=== PATIENT | female | born 1995 | race Caucasian/White ===

== ENCOUNTER 2017-12-30 09:24 | Outpatient (CLI) | payer MEDICAID ==
--- NOTE | 2017-12-30 10:04 | XRAY Report ---
Procedure Date: 12/30/2017 Accession Number: [id number] / [id number] Procedure: XRN - Cervical Spine 2 View CPT Code: FULL RESULT: EXAM: CERVICAL SPINE RADIOGRAPHY EXAM DATE: 12/30/2017 09:31 AM. CLINICAL HISTORY: HEADACHES. COMPARISONS: None. TECHNIQUE: 3 views. FINDINGS: Alignment: Normal. No spondylolisthesis or scoliosis. Bones: The cervical vertebral bodies and posterior elements are well visualized from the skull base through C7-T1. No fractures or bone lesions. Disks: Chronic-appearing mild anterior superior endplate irregularity at C6 may be developmental, degenerative and/or relate to remote trauma. Otherwise no significant degenerative findings. Disk heights are maintained. Facets: No significant degenerative disease. Soft Tissues: Normal. No prevertebral soft tissue swelling. The visualized lung apices are clear. IMPRESSION: 1. No convincing acute osseous abnormality. 2. Other findings as noted above. RADIA
== END 2017-12-30 09:25 | disposition home or self-care (01) ==
LOC: DI.N 09:24
PROVIDERS: ATTEND Nurse Practitioner
DX: M54.2 Cervicalgia (principal); G44.89 Other headache syndrome
CPT/HCPCS: 72040

== ENCOUNTER 2018-03-29 17:09 | Outpatient (CLI) | payer MEDICAID | END 2018-03-29 17:10 | LOC: LAB.R 17:09 | PROVIDERS: ATTEND Nurse Practitioner | DX: R10.2 Pelvic and perineal pain (principal); N94.12 Deep dyspareunia | CPT/HCPCS: 87491; 87591 ==

== ENCOUNTER 2018-04-20 07:42 | Outpatient (CLI) | payer MEDICAID ==
--- NOTE | 2018-04-20 11:26 | Ultrasound Report ---
Reason: PELVIC PAIN, DEEP DYSPAREUNIA, ABD PAIN, ACUTE Procedure Date: 04/20/2018 Accession Number: [id number] / [id number] Procedure: US - Pelvic w/Transvaginal CPT Code: FULL RESULT: EXAM: PELVIC ULTRASOUND EXAM DATE: 04/20/2018 09:10 AM. CLINICAL HISTORY: Pelvic pain, deep dyspareunia, abdominal pain, acute. COMPARISON: None. TECHNIQUE: Realtime transabdominal pelvic scan performed to identify the uterus and adnexa and as an overview of other pelvic structures, followed by transvaginal scan to provide greater detail of the uterus and adnexa, with static image documentation. FINDINGS: Uterus: 8.5 x 5.1 x 5.0 cm, volume 113 cc. Retroverted retroflexed position. Normal overall size and echotexture. Masses: None. Endometrium: 11.5 mm. Normal. Cervix: Unremarkable. Right Ovary: 4.6 x 2.0 x 3.5 cm, volume 17 cc. Normal echotexture and blood flow. A 2.7 cm simple-appearing cyst likely represents a physiologic dominant follicle. Left Ovary: 3.1 x 1.7 x 2.0 cm, volume 5.5 cc. Normal echotexture and blood flow. Free Fluid: A small amount of free fluid is seen in the cul-de-sac, possibly physiologic. Other: None. IMPRESSION: Small amount of free pelvic fluid, otherwise normal examination. RADIA
--- NOTE | 2018-04-20 12:11 | Ultrasound Report ---
Reason: PELVIC PAIN, DEEP DYSPAREUNIA, ABD PAIN, ACUTE Procedure Date: 04/20/2018 Accession Number: [id number] / [id number] Procedure: US - Abdomen Complete CPT Code: FULL RESULT: EXAM: ABDOMEN ULTRASOUND EXAM DATE: 04/20/2018 08:50 AM. CLINICAL HISTORY: Pelvic pain, deep dyspareunia, abdomen pain, acute. COMPARISON: None. TECHNIQUE: Real-time scanning was performed with static images obtained. FINDINGS: Liver: Normal in size and echotexture. Right lobe of the liver measures at least 15.7 cm. Main portal vein flow: Hepatopetal. Gallbladder: Normal. No stones, wall thickening, or sonographic Shah's sign. Biliary System: Common bile duct measures 4 mm. No intrahepatic or extrahepatic ductal dilatation. Pancreas: Visualized portion is unremarkable. Kidneys: Right: 10.2 cm longitudinally. Normal. No contour-deforming mass, stones, or hydronephrosis. Left: 10.1 cm longitudinally. Normal. No contour-deforming mass, stones, or hydronephrosis. Spleen: 9 cm. Normal in size and echotexture. Aorta and Inferior Vena Cava: Unremarkable. Other: None. IMPRESSION: Normal abdomen ultrasound. RADIA
== END 2018-04-20 07:43 | disposition home or self-care (01) ==
LOC: DI 07:42
PROVIDERS: ATTEND Nurse Practitioner
DX: N94.12 Deep dyspareunia (principal); R10.2 Pelvic and perineal pain
CPT/HCPCS: 76700; 76830; 76856

== ENCOUNTER 2018-05-12 22:02 | Emergency (ER) | payer MEDICAID ==
--- NOTE | 2018-05-12 22:36 | ED Physician Documentation ---
PD HPI HEADACHE - Stated complaint Stated Complaint: ALONSO - Chief complaint Chief Complaint: Neuro - History obtained from History obtained from: Patient - History of Present Illness Timing - onset: How many weeks ago (2) Timing - onset during: Light activity Timing - duration: Weeks (2) Timing - details: Gradual onset, Still present, Waxing and waning Worst headache ever?: No: Worst headache ever? Location: Front, Right Quality: Throbbing, Aching Associated symptoms: No: Fever, Stiff neck, Nausea, Weakness Contributing factors: No: Anticoagulated, Hypertension, Recent illness, Trauma Similar symptoms before: No diagnosis Recently seen: Clinic (for the nosebleed, that was stopped at that time. No particular treatment offered.) PD PAST MEDICAL HISTORY - Past Medical History Cardiovascular: None Respiratory: None - Present Medications Home Medications: Ambulatory Orders Medication Instructions Recorded Confirmed Gabapentin 0 mg PO 05/12/18 Topiramate 0 mg PO 05/12/18 Dexamethasone [Decadron] 4 mg PO DAILY #5 tablet 05/13/18 Hydrocodone/Acetaminophen [[place] 1 each PO Q6H PRN #15 tablet 05/13/18 5-325 Tablet] Naproxen 375 mg PO BID #20 tablet 05/13/18 Ondansetron Odt [Zofran] 4 mg TL Q6H PRN #15 tablet 05/13/18 - Allergies Allergies/Adverse Reactions: Allergies Allergy/AdvReac Type Severity Reaction Status Date / Time No Known Drug Allergies Allergy Verified 05/12/18 22:09 PD ED PE NORMAL - Vitals Vital signs reviewed: Yes - General General: Alert and oriented X 3, Well developed/nourished - HEENT HEENT: PERRL (some light sensitivity), EOMI, Moist mucous membranes, Pharynx b enign - Neck Neck: Supple, no meningeal sign, No adenopathy, No JVD - Cardiac Cardiac: RRR, No murmur - Respiratory Respiratory: Clear bilaterally - Abdomen Abdomen: Soft, Non tender - Derm Derm: Normal color, Warm and dry - Extremities Extremities: No tenderness to palpate, Normal ROM s pain, No edema, No calf tenderness / cord - Neuro Neuro: Alert and oriented X 3, 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 No red flags to suggest desire for testing. ), considered differential (This seems likely to be a migraine type headache. She has not had them notably in the past. Basic tests are good here.), d/w patient Departure - Departure Disposition: 01 Home, Self Care Clinical Impression: Headache Qualifiers: Headache type: unspecified Headache chronicity pattern: acute headache Intractability: not intractable Qualified Code(s): R51 - Headache Condition: Stable Record reviewed to determine appropriate education?: Yes Instructions: ED Cephalgia Unspecified Follow-Up: Juany Bryson DNP [Primary Care Provider] - Prescriptions: Dexamethasone [Decadron] 4 mg PO DAILY #5 tablet Hydrocodone/Acetaminophen [[place] 5-325 Tablet] 1 each PO Q6H PRN #15 tablet PRN Reason: Pain Naproxen 375 mg PO BID #20 tablet Ondansetron Odt [Zofran] 4 mg TL Q6H PRN #15 tablet PRN Reason: Nausea / Vomiting Comments: Drink lots of fluids. Ondansetron if needed for nausea. Use naproxen anti- inflammatory twice daily for the next week. Also use Decadron steroid daily for the next 5 days. These will be to try to prevent the recurrence of the headache. Had hydrocodone if needed for headache. Follow-up with your primary care regarding the MRI results and follow-up on these headaches. We try to find the results of your MRI but the diagnostic center does not have any one available after hours to give out the reports and I do not have access to their database. Discharge Date/Time: 05/13/18 02:29
[2018-05-12] MEDS ORDERED: SODIUM CHLORIDE 0.9% 1,000 ML IV ONE (23:09)
[2018-05-12] MEDS ORDERED: METOCLOPRAMIDE 10 MG/2 ML VIAL IVP STA (23:15)
[2018-05-12] MEDS ORDERED: KETOROLAC 30 MG/ML VIAL IVP STA (23:15)
[2018-05-12] MEDS ORDERED: DEXAMETHASONE 10 MG/ML VIAL IVP STA (23:15)
[2018-05-13] MEDS ORDERED: HYDROcod/ACET 5/325 Prepack 4 PO STA (01:09)
[2018-05-13 02:23] VITALS: BP 117/77
== END 2018-05-13 02:29 | disposition home or self-care (01) ==
LOC: ED 22:02
DX: R51 Headache (principal)
CPT/HCPCS: 96361; 96374; 96375; 99283; 99284; J2765

== ENCOUNTER 2018-06-04 13:59 | Emergency (ER) | payer MEDICAID ==
[2018-06-04] MEDS ORDERED: SODIUM CHLORIDE 0.9% 1,000 ML IV ONE (15:04)
[2018-06-04] MEDS ORDERED: cefTRIAXone 1 GM in SODIUM CHLORIDE 0.9% MINIBAG 100 ML IV STA (15:04)
[2018-06-04] MEDS ORDERED: KETOROLAC 30 MG/ML VIAL IVP STA (15:04)
[2018-06-04] MEDS ORDERED: METOCLOPRAMIDE 10 MG/2 ML VIAL IVP STA (15:04)
--- NOTE | 2018-06-04 15:05 | ED Physician Documentation ---
PD HPI HEADACHE - Stated complaint Stated Complaint: HEADACHE - Chief complaint Chief Complaint: Neuro - History obtained from History obtained from: Patient - History of Present Illness Timing - onset: Other (22-year-old woman with history of migraines and chronic sinus disease presents with an ongoing headache for the last Month and a half almost. It is often in the left occiput but there is also a frontal component and its associated with ear pain. Her primary care physician sent her for an MRI at an outpatient facility. She does not have the read with her but to her memory it showed sinus disease without intracranial abnormality. She was referred to ENT, but that referral is pending and there have been some hiccups with regards to the and for referral.) Review of Systems Constitutional: denies: Fever, Chills Eyes: reports: Photophobia. denies: Loss of vision, Decreased vision Ears: reports: Loss of hearing, Ear pain. denies: Drainage/discharge Nose: reports: Rhinorrhea / runny nose, Congestion, Sinus pressure / pain Throat: denies: Sore throat Cardiac: denies: Chest pain / pressure, Palpitations PD PAST MEDICAL HISTORY - Past Medical History Past Medical History: Yes Cardiovascular: None Respiratory: None Neuro: Headaches Endocrine/Autoimmune: None GI: None COLUMN PRECASTER: None : None HEENT: None Psych: None Musculoskeletal: None Derm: None - Past Surgical History Past Surgical History: Yes /COLUMN PRECASTER: section, Tubal ligation HEENT: Myringotomy (tubes), Other - Present Medications Home Medications: Ambulatory Orders Medication Instructions Recorded Confirmed Gabapentin 0 mg PO DAILY 05/12/18 06/04/18 Topiramate 0 mg PO DAILY PM 05/12/18 06/04/18 RX: Naproxen 375 mg PO BID #20 tablet 05/13/18 06/04/18 Amox/Clav 875/125 [Augmentin] 1 each PO Q12H #28 tablet 06/04/18 Hydrocodone/Acetaminophen 1 - 2 each PO Q6H PRN #14 tablet 06/04/18 [Hydrocodon-Acetaminophen 5-325] RX: predniSONE [Deltasone] 60 mg PO DAILY 5 Days tablet 06/04/18 - Allergies Allergies/Adverse Reactions: Allergies Allergy/AdvReac Type Severity Reaction Status Date / Time No Known Drug Allergies Allergy Verified 06/04/18 14:08 - Social History Does the pt smoke?: No Smoking Status: Never smoker Does the pt drink ETOH?: Yes Does the pt have substance abuse?: No - Immunizations Immunizations are current?: Yes - POLST Patient has POLST: No PD ED PE NORMAL - Vitals Vital signs reviewed: Yes - General General: Alert and oriented X 3, No acute distress - HEENT HEENT: PERRL, EOMI, Other (She has right maxillary and bilateral frontal sinus tenderness. Bilateral otitis media with evidence of sclerosis of both TMs.) - Neck Neck: Supple, no meningeal sign, No bony TTP - Cardiac Cardiac: RRR, No murmur - Respiratory Respiratory: No respiratory distress, Clear bilaterally - Abdomen Abdomen: Non tender - Neuro Neuro: Alert and oriented X 3, Normal speech - Psych Psych: Normal mood, Normal affect Results - Vitals Vitals: Vital Signs - 24 hr 06/04/18 06/04/18 14:06 16:51 Temperature 36.1 C L 36.3 C L Heart Rate 99 88 Respiratory 16 18 Rate Blood Pressure 132/84 H 108/60 O2 Saturation 100 99 Oxygen O2 Source Room air PD MEDICAL DECISION MAKING - ED course ED course: This is a 22-year-old woman whose had a severe headache for over a month now. Partially seems migrainous but may also be sinus disease based on her outpatient MRI showing same. Seems reasonable given the severity of her headaches to treat her with antibiotics at this juncture pending her ENT referral. Departure - Departure Disposition: 01 Home, Self Care Clinical Impression: Headache, Sinusitis, BOM (bilateral otitis media) Condition: Good Record reviewed to determine appropriate education?: Yes Instructions: ED Cephalgia Unspecified, ED Otitis Media Acute Adult, ED Sinusitis Abx Tx Prescriptions: Amox/Clav 875/125 [Augmentin] 1 each PO Q12H #28 tablet Hydrocodone/Acetaminophen [Hydrocodon-Acetaminophen 5-325] 1 - 2 each PO Q6H PRN #14 tablet PRN Reason: pain RX: predniSONE [Deltasone] 60 mg PO DAILY 5 Days tablet Comments: Continue your efforts at trying to get in with ear, nose and throat physician as referred by your primary care physician. Return for new or worsening symptoms. Do not drink or drive while taking narcotic pain medication. Note that many narcotic pain relievers also contain Tylenol/acetaminophen. Please ensure that your total dose of acetaminophen from all sources does not exceed 3 g (3000 mg) per day. You may get constipated while on this medication. Take a stool softener such as Colace twice a day while you are on it. Also add an [id number] laxative such as senna or MiraLAX on any day that you do not have a bowel movement. If you received a narcotic pain medication or sedative while in the emergency department, do not drive for the next 24 hours. Your blood pressure was elevated today on check into the emergency department. This does not mean that you have hypertension, it is a common phenomenon to come to the emergency department and have elevated blood pressure. I recommend that you see your primary care physician within the week to have it rechecked when you are feeling better. Discharge Date/Time: 06/04/18 17:01
[2018-06-04 16:52] VITALS: BP 108/60
[2018-06-04] MEDS ORDERED: ONDANSETRON 4 MG/2 ML VIAL IVP STA (17:02)
== END 2018-06-04 17:01 | disposition home or self-care (01) ==
LOC: ED 13:59
DX: R51 Headache (principal); J32.9 Chronic sinusitis, unspecified; H66.93 Otitis media, unspecified, bilateral
CPT/HCPCS: 96365; 96375; 99283; J2765

== ENCOUNTER 2018-09-12 09:57 | Outpatient (CLI) | payer MEDICAID | END 2018-09-12 23:59 | disposition home or self-care (01) | LOC: LAB.R 09:57 | PROVIDERS: ATTEND Physician Assistant Medical | DX: R11.2 Nausea with vomiting, unspecified (principal); R10.13 Epigastric pain | CPT/HCPCS: 83013 ==

== ENCOUNTER 2018-09-29 11:13 | Emergency (ER) | payer OTHER, MEDICAID ==
[2018-09-29 11:52] LABS: BILIRUBIN,URINE NEGATIVE (NEGATIVE); GLUCOSE, URINE (UA) NEGATIVE (NEGATIVE); KETONES,URINE (UA) 15 mg/dL (NEGATIVE); LEUKOCYTE ESTERASE, URINE NEGATIVE (NEGATIVE); NITRITE,URINE NEGATIVE (NEGATIVE); OCCULT BLOOD,URINE NEGATIVE (NEGATIVE); PH,URINE 5.5 PH (5.0-7.5); PROTEIN,URINE NEGATIVE (NEGATIVE); UROBILINOGEN,URINE 0.2 (NORMAL) E.U./dL (NORMAL)
[2018-09-29 11:56] LABS: CLARITY,URINE CLEAR (CLEAR); HCG UR QUAL NEGATIVE
[2018-09-29] MEDS ORDERED: SODIUM CHLORIDE 0.9% 1,000 ML IV ONE (12:06)
[2018-09-29] MEDS ORDERED: ONDANSETRON 4 MG/2 ML VIAL IVP STA (12:06)
[2018-09-29] MEDS ORDERED: SUCRALFATE 1 GM/10 ML UDC PO STA (12:19)
[2018-09-29] MEDS ORDERED: PHENobarb/HYOSCY/ATROPINE/SCOP 5 ML UDC PO STA (12:19)
[2018-09-29] MEDS ORDERED: LIDOCAINE VISCOUS 2% 15 ML UDC MM STA (12:19)
[2018-09-29] MEDS ORDERED: FAMOTIDINE 20 MG TABLET PO STA (12:19)
[2018-09-29] MEDS ORDERED: MAG HYDROX/AL HYDROX/SIMETH 30 ML UDC PO STA (12:19)
--- NOTE | 2018-09-29 12:21 | ED Physician Documentation ---
History of Present Illness - Stated complaint Stated Complaint: N/V - Chief complaint Chief Complaint: Abd Pain - History obtained from History obtained from: Patient - History of Present Illness Pain level max: 5 Pain level now: 4 Improved by: nothing Worsened by: nothing - Additonal information Additional information: 22-year-old female presents to the emergency department with vomiting every morning for the past 3 to 4 months. She also states that she has headaches but these have been ongoing for quite some time. She states she had a "abnormal MRI" of her brain a few months ago but does not know what this means. She also had sinus surgery after the MRI that showed chronic sinusitis, states she is still having headaches. She saw her doctor a few days ago and was tested for H. pylori which was reportedly negative. Review of Systems Constitutional: denies: Fever, Chills Nose: denies: Rhinorrhea / runny nose Throat: denies: Sore throat Cardiac: denies: Chest pain / pressure Respiratory: denies: Cough GI: reports: Nausea, Vomiting. denies: Diarrhea : denies: Dysuria, Frequency, Hesitancy, Now EGA Skin: denies: Rash Musculoskeletal: denies: Neck pain, Back pain Neurologic: denies: Focal weakness, Numbness, Seizure, Confused, LOC PD PAST MEDICAL HISTORY - Past Medical History Cardiovascular: None Respiratory: None Neuro: Headaches Endocrine/Autoimmune: None GI: None TOBACCO SAMPLER: None : None HEENT: None Psych: None Musculoskeletal: None Derm: None - Past Surgical History Past Surgical History: Yes /TOBACCO SAMPLER: section, Tubal ligation HEENT: Myringotomy (tubes), Other - Present Medications Home Medications: Ambulatory Orders Medication Instructions Recorded Confirmed Gabapentin 0 mg PO DAILY 05/12/18 06/04/18 Topiramate 0 mg PO DAILY PM 05/12/18 06/04/18 Famotidine [Pepcid] 20 mg PO BID #60 tablet 09/29/18 Ondansetron Odt [Zofran] 4 mg TL Q6H PRN #10 tablet 09/29/18 Sucralfate [Carafate] 1 gm PO ACHS #60 tablet 09/29/18 - Allergies Allergies/Adverse Reactions: Allergies Allergy/AdvReac Type Severity Reaction Status Date / Time No Known Drug Allergies Allergy Verified 09/29/18 11:35 - Social History Does the pt smoke?: No Smoking Status: Never smoker Does the pt drink ETOH?: Yes Does the pt have substance abuse?: No - Immunizations Immunizations are current?: Yes - POLST Patient has POLST: No PD ED PE NORMAL - Vitals Vital signs reviewed: Yes - General General: Alert and oriented X 3, No acute distress, Well developed/nourished - HEENT HEENT: Atraumatic, PERRL, EOMI, Ears normal, Moist mucous membranes - Neck Neck: Supple, no meningeal sign - Cardiac Cardiac: RRR, Strong equal pulses - Respiratory Respiratory: No respiratory distress, Clear bilaterally - Abdomen Abdomen: Soft, Non tender, Non distended - Derm Derm: Warm and dry - Extremities Extremities: No edema, No calf tenderness / cord - Neuro Neuro: Alert and oriented X 3, auth specialist 2-12 intact, No motor deficit, No sensory deficit, Normal speech Eye Opening: Spontaneous Motor: Obeys Commands Verbal: Oriented GCS Score: 15 - Psych Psych: Normal mood, Normal affect Results - Vitals Vitals: Vital Signs - 24 hr 09/29/18 09/29/18 11:32 13:28 Temperature 36.9 C Heart Rate 82 78 Respiratory 16 14 Rate Blood Pressure 129/76 133/76 H O2 Saturation 99 99 Oxygen O2 Source Room air - Labs Labs: Laboratory Tests 09/29/18 09/29/18 09/29/18 11:42 12:20 12:20 WBC 3.6 L RBC 4.61 Hgb 13.5 Hct 40.1 MCV 87.1 MCH 29.4 MCHC 33.7 RDW 13.0 Plt Count 206 MPV 8.9 Neut # (Auto) 1.7 Lymph # (Auto) 1.4 L Dawson # (Auto) 0.3 Eos # (Auto) 0.1 Baso # (Auto) 0.0 Absolute Nucleated RBC 0.00 Nucleated RBC % 0.0 Manual Slide Review Indicated Platelet Estimate NORMAL (130-450,000) Platelet Morphology 1+ LARGE PLATELETS RBC Morph Micro Appear NORMAL APPEARANCE Sodium 135 Potassium 3.8 Chloride 102 Carbon Dioxide 23 Anion Gap 10.0 BUN 12 Creatinine 0.6 Estimated GFR (MDRD) 123 Glucose 90 POC Whole Bld Glucose Calcium 9.2 Total Bilirubin 1.1 H AST 20 ALT 12 Alkaline Phosphatase 30 L Total Protein 7.9 Albumin 4.8 Globulin 3.1 Albumin/Globulin Ratio 1.5 Lipase 26 Urine Color YELLOW Urine Clarity CLEAR Urine pH 5.5 Ur Specific [place] 1.025 Urine Protein NEGATIVE Urine Glucose (UA) NEGATIVE Urine Ketones 15 H Urine Occult Blood NEGATIVE Urine Nitrite NEGATIVE Urine Bilirubin NEGATIVE Urine Urobilinogen 0.2 (NORMAL) Ur Leukocyte Esterase NEGATIVE Ur Microscopic Review NOT INDICATED Urine Culture Comments NOT INDICATED Urine HCG, Qual NEGATIVE 09/29/18 12:25 WBC RBC Hgb Hct MCV MCH MCHC RDW Plt Count MPV Neut # (Auto) Lymph # (Auto) Dawson # (Auto) Eos # (Auto) Baso # (Auto) Absolute Nucleated RBC Nucleated RBC % Manual Slide Review Platelet Estimate Platelet Morphology RBC Morph Micro Appear Sodium Potassium Chloride Carbon Dioxide Anion Gap BUN Creatinine Estimated GFR (MDRD) Glucose POC Whole Bld Glucose 95 Calcium Total Bilirubin AST ALT Alkaline Phosphatase Total Protein Albumin Globulin Albumin/Globulin Ratio Lipase Urine Color Urine Clarity Urine pH Ur Specific [place] Urine Protein Urine Glucose (UA) Urine Ketones Urine Occult Blood Urine Nitrite Urine Bilirubin Urine Urobilinogen Ur Leukocyte Esterase Ur Microscopic Review Urine Culture Comments Urine HCG, Qual PD MEDICAL DECISION MAKING - ED course Complexity details: reviewed old records, reviewed results, re-evaluated patient, considered differential, d/w patient ED course: 22-year-old female with vomiting. Possible gastritis? Feels better after Zofran. Reviewed her outside records, recent MRI with no tumors or masses. We will have her follow-up with her doctor for further care. Abdomen soft, nontender nondistended on serial exam. Patient counseled regarding signs and symptoms for which I believe and urgent re-evaluation would be necessary. Patient with good understanding of and agreement to plan and is comfortable going home at this time This document was made in part using voice recognition software. While efforts are made to proofread this document, sound alike and grammatical errors may occur. Departure - Departure Disposition: 01 Home, Self Care Clinical Impression: Vomiting Qualifiers: Vomiting type: unspecified Vomiting Intractability: non-intractable Nausea presence: with nausea Qualified Code(s): R11.2 - Nausea with vomiting, unspecified Gastritis Qualifiers: Gastritis type: unspecified gastritis Chronicity: acute Gastritis bleeding: without bleeding Qualified Code(s): K29.00 - Acute gastritis without bleeding Condition: Good Instructions: ED PUD Vs Gastritis, ED Nausea Vomiting Follow-Up: Angela,Talha, PA-C [Primary Care Provider] - Within 1 week Prescriptions: Famotidine [Pepcid] 20 mg PO BID #60 tablet Ondansetron Odt [Zofran] 4 mg TL Q6H PRN #10 tablet PRN Reason: Nausea / Vomiting Sucralfate [Carafate] 1 gm PO ACHS #60 tablet Comments: Take the medications as prescribed. Return if you worsen. Follow-up with your doctor for further care. You should also follow-up with your doctor to have your hepatitis C testing done. Discharge Date/Time: 09/29/18 13:41
[2018-09-29 12:45] LABS: BASOPHILS % (AUTO) 1.3 %; EOSINOPHILS # (AUTO) 0.1 10^3/uL (0.0-0.7); EOSINOPHILS % (AUTO) 3.7 %; HGB - HEMOGLOBIN 13.5 g/dL (12.0-16.0); LYMPHOCYTES # (AUTO) 1.4 10^3/uL (1.5-3.5); MEAN CORPUSCULAR HEMOGLOBIN 29.4 pg (27.0-31.0); MEAN CORPUSCULAR HGB CONC 33.7 g/dL (32.0-36.0); MEAN CORPUSCULAR VOLUME 87.1 fL (81.0-99.0); MEAN PLATELET VOLUME 8.9 fL (7.9-10.8); MONOCYTES # (AUTO) 0.3 10^3/uL (0.0-1.0); MONOCYTES % (AUTO) 9.1 %; NEUTROPHILS # (AUTO) 1.7 10^3/uL (1.5-6.6); NEUTROPHILS % (AUTO) 46.9 %; PLT - PLATELET COUNT 206 10^3/uL (130-450); RED BLOOD COUNT 4.61 10^6/uL (4.20-5.40); WHITE BLOOD COUNT 3.6 x10^3/uL (4.8-10.8)
[2018-09-29 12:54] LABS: ALBUMIN 4.8 g/dL (3.2-5.5); ALBUMIN/GLOBULIN RATIO 1.5 (1.0-2.2); BILIRUBIN,TOTAL 1.1 mg/dL (0.2-1.0); CALCIUM 9.2 mg/dL (8.5-10.3); CREATININE 0.6 mg/dL (0.4-1.0); TOTAL PROTEIN 7.9 g/dL (6.7-8.2)
[2018-09-29 13:05] LABS: PLATELET ESTIMATE, MANUAL NORMAL (130-450,000) (NORMAL); PLATELET MORPHOLOGY 1+ LARGE PLATELETS (NORMAL); RBC MORPHOLOGY (MULTIPLE) NORMAL APPEARANCE (NORMAL)
[2018-09-29 13:29] VITALS: BP 133/76
== END 2018-09-29 13:41 | disposition home or self-care (01) ==
LOC: ED 11:13
DX: K29.00 Acute gastritis without bleeding (principal)
CPT/HCPCS: 36415; 80053; 81003; 81025; 83690; 85025; 96361; 96374; 99283; A9270; 81001; 87086

== ENCOUNTER 2018-12-31 01:01 | Emergency (ER) | payer MEDICAID, OTHER ==
[2018-12-31 01:20] VITALS: BP 143/96
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
== END 2018-12-31 03:39 | disposition home or self-care (01) ==
LOC: ED 01:01
DX: S05.12XA Contusion of eyeball and orbital tissues, left eye, initial encounter (principal); H11.32 Conjunctival hemorrhage, left eye; Y04.2XXA Assault by strike against or bumped into by another person, initial encounter
CPT/HCPCS: 99282

== ENCOUNTER 2020-07-01 14:27 | Emergency (ER) | payer MEDICAID, OTHER ==
[2020-07-01 15:04] LABS: BASOPHILS % (AUTO) 0.5 %; EOSINOPHILS # (AUTO) 0.2 10^3/uL (0.0-0.7); EOSINOPHILS % (AUTO) 4.1 %; HGB - HEMOGLOBIN 13.8 g/dL (12.0-16.0); LYMPHOCYTES # (AUTO) 1.6 10^3/uL (1.5-3.5); MEAN CORPUSCULAR HEMOGLOBIN 29.7 pg (27.0-31.0); MEAN CORPUSCULAR HGB CONC 33.7 g/dL (32.0-36.0); MEAN CORPUSCULAR VOLUME 88.4 fL (81.0-99.0); MEAN PLATELET VOLUME 10.3 fL (7.9-10.8); MONOCYTES # (AUTO) 0.3 10^3/uL (0.0-1.0); MONOCYTES % (AUTO) 7.5 %; NEUTROPHILS # (AUTO) 2.2 10^3/uL (1.5-6.6); NEUTROPHILS % (AUTO) 50.7 %; PLT - PLATELET COUNT 211 10^3/uL (130-450); RED BLOOD COUNT 4.64 10^6/uL (4.20-5.40); RED CELL DISTRIBUTION WIDTH 11.9 % (12.0-15.0); WHITE BLOOD COUNT 4.4 x10^3/uL (4.8-10.8)
[2020-07-01 15:13] LABS: BILIRUBIN,URINE NEGATIVE (NEGATIVE); GLUCOSE, URINE (UA) NEGATIVE (NEGATIVE); KETONES,URINE (UA) TRACE mg/dL (NEGATIVE); LEUKOCYTE ESTERASE, URINE NEGATIVE (NEGATIVE); NITRITE,URINE NEGATIVE (NEGATIVE); OCCULT BLOOD,URINE SMALL (NEGATIVE); PROTEIN,URINE NEGATIVE (NEGATIVE); UROBILINOGEN,URINE 0.2 (NORMAL) E.U./dL (NORMAL)
[2020-07-01 15:15] LABS: CLARITY,URINE CLEAR (CLEAR)
[2020-07-01 15:16] LABS: HCG UR QUAL NEGATIVE
[2020-07-01 15:19] LABS: ALBUMIN 5.2 g/dL (3.2-5.5); ALBUMIN/GLOBULIN RATIO 1.5 (1.0-2.2); BILIRUBIN,TOTAL 0.7 mg/dL (0.2-1.0); CALCIUM 10.1 mg/dL (8.5-10.3); CREATININE 0.8 mg/dL (0.4-1.0); TOTAL PROTEIN 8.6 g/dL (6.7-8.2)
[2020-07-01 15:32] LABS: BACTERIA,URINE Rare /HPF (None Seen); MUCUS,URINE Moderate Strands; RBC,URINE 0-5 /HPF (0-5); SQUAMOUS EPITHELIAL CELL,UR FEW Squamous (<= Few)
[2020-07-01] MEDS ORDERED: SODIUM CHLORIDE 0.9% 1,000 ML IV STA ×2 (15:43)
[2020-07-01] MEDS ORDERED: HALOPERIDOL 5 MG/ML VIAL IVP STA (15:55)
[2020-07-01] MEDS ORDERED: diphenhydrAMINE INJ 50 MG/ML VIAL IVP STA (15:55)
--- NOTE | 2020-07-01 15:55 | ED Physician Documentation ---
PD HPI ABD PAIN - Stated complaint Stated Complaint: N/V - Chief complaint Chief Complaint: Abd Pain - History obtained from History obtained from: Patient - History of Present Illness Timing - onset: How many months ago (3) Timing - duration: Months (3) Timing - details: Gradual onset Pain level max: 3 Pain level now: 2 Quality: Cramping, Aching, Pain Location: All over / everywhere Radiation: Other (non-radiating) Improved by: Other (nothing) Worsened by: Other (nothing) Associated symptoms: Nausea, Vomiting. No: Fever, Hematemesis, Diarrhea, Co nstipation, Melena, Hematochezia, Dysuria, Hematuria, Chest pain - Additional information Additional information: Patient is a 24-year-old female who presents to the emergency department with nausea and vomiting intermittently for the past 3 months. She was seen at [facility] for same, states that they "did not do anything". And sent me home. She does use marijuana several times per week. She states no marijuana use for the last week. Denies any possibility of . Has a tubal ligation in the past. No fevers. No diarrhea. No constipation. Review of Systems Constitutional: denies: Fever, Chills Respiratory: denies: Cough GI: denies: Nausea, Vomiting, Diarrhea : denies: Dysuria Skin: denies: Rash Musculoskeletal: denies: Neck pain, Back pain Neurologic: denies: Headache PD PAST MEDICAL HISTORY - Past Medical History Cardiovascular: None Respiratory: None Neuro: Headaches Endocrine/Autoimmune: None GI: Other INVESTIGATOR INTERNAL REVENUE: None : None HEENT: Chronic sinusitis, Other Psych: Depression, Anxiety, Post traumatic stress disorder Musculoskeletal: None Derm: None - Past Surgical History Past Surgical History: Yes /INVESTIGATOR INTERNAL REVENUE: section, Tubal ligation HEENT: Myringotomy (tubes), Tonsil/Adenoidectomy, Other - Present Medications Home Medications: Ambulatory Orders Medication Instructions Recorded Confirmed Multivitamin 1 each PO DAILY 07/01/20 07/01/20 Ondansetron Odt [Zofran] 4 mg TL Q6H PRN #10 tab 07/01/20 Promethazine [Phenergan] 25 mg PO Q6H PRN #10 tab 07/01/20 - Allergies Allergies/Adverse Reactions: Allergies Allergy/AdvReac Type Severity Reaction Status Date / Time codeine AdvReac Unknown Verified 07/01/20 14:32 - Social History Does the pt smoke?: No Smoking Status: Former smoker Does the pt drink ETOH?: No Does the pt have substance abuse?: Yes Substance Use and Type: Marijuana - Immunizations Immunizations are current?: Yes - POLST Patient has POLST: No PD ED PE NORMAL - Vitals Vital signs reviewed: Yes - General General: Alert and oriented X 3, No acute distress - HEENT HEENT: Moist mucous membranes - Neck Neck: Supple, no meningeal sign - Cardiac Cardiac: RRR, Strong equal pulses - Respiratory Respiratory: No respiratory distress, Clear bilaterally - Abdomen Abdomen: Soft, Non tender, Non distended - Back Back: No CVA TTP - Derm Derm: Warm and dry, No rash - Extremities Extremities: No edema - Neuro Neuro: Alert and oriented X 3 Results - Vitals Vitals: Vital Signs - 24 hr 07/01/20 07/01/20 14:32 17:54 Temperature 36.9 C 36.6 C Heart Rate 100 71 Respiratory 16 18 Rate Blood Pressure 114/78 103/67 O2 Saturation 100 99 Oxygen O2 Source Room air - Labs Labs: Laboratory Tests 07/01/20 07/01/20 07/01/20 14:50 14:50 14:55 WBC 4.4 L RBC 4.64 Hgb 13.8 Hct 41.0 MCV 88.4 MCH 29.7 MCHC 33.7 RDW 11.9 L Plt Count 211 MPV 10.3 Neut # (Auto) 2.2 Lymph # (Auto) 1.6 [place] # (Auto) 0.3 Eos # (Auto) 0.2 Baso # (Auto) 0.0 Absolute Nucleated RBC 0.00 Nucleated RBC % 0.0 Sodium Potassium Chloride Carbon Dioxide Anion Gap BUN Creatinine Estimated GFR (MDRD) Glucose Calcium Total Bilirubin AST ALT Alkaline Phosphatase Total Protein Albumin Globulin Albumin/Globulin Ratio Lipase Urine Color YELLOW Urine Clarity CLEAR Urine pH 6.0 Ur Specific [place] 1.020 Urine Protein NEGATIVE Urine Glucose (UA) NEGATIVE Urine Ketones TRACE Urine Occult Blood SMALL H Urine Nitrite NEGATIVE Urine Bilirubin NEGATIVE Urine Urobilinogen 0.2 (NORMAL) Ur Leukocyte Esterase NEGATIVE Urine RBC 0-5 Urine WBC 0-3 Ur Squamous Epith Cells FEW Squamous Urine Bacteria Rare Urine Mucus Moderate Strands Ur Microscopic Review INDICATED Urine Culture Comments NOT INDICATED Urine HCG, Qual NEGATIVE Urine Opiates Screen NEGATIVE Ur Oxycodone Screen NEGATIVE Urine Methadone Screen NEGATIVE Ur Propoxyphene Screen NEGATIVE Ur Barbiturates Screen NEGATIVE Ur Tricyclics Screen NEGATIVE Ur Phencyclidine Scrn NEGATIVE Ur Amphetamine Screen NEGATIVE U Methamphetamines Scrn NEGATIVE U Benzodiazepines Scrn NEGATIVE Urine Cocaine Screen NEGATIVE U Cannabinoids Screen POSITIVE H 07/01/20 14:55 WBC RBC Hgb Hct MCV MCH MCHC RDW Plt Count MPV Neut # (Auto) Lymph # (Auto) [place] # (Auto) Eos # (Auto) Baso # (Auto) Absolute Nucleated RBC Nucleated RBC % Sodium 137 Potassium 4.2 Chloride 100 L Carbon Dioxide 26 Anion Gap 11.0 BUN 10 Creatinine 0.8 Estimated GFR (MDRD) 87 L Glucose 95 Calcium 10.1 Total Bilirubin 0.7 AST 15 ALT 13 Alkaline Phosphatase 34 L Total Protein 8.6 H Albumin 5.2 Globulin 3.4 Albumin/Globulin Ratio 1.5 Lipase 32 Urine Color Urine Clarity Urine pH Ur Specific [place] Urine Protein Urine Glucose (UA) Urine Ketones Urine Occult Blood Urine Nitrite Urine Bilirubin Urine Urobilinogen Ur Leukocyte Esterase Urine RBC Urine WBC Ur Squamous Epith Cells Urine Bacteria Urine Mucus Ur Microscopic Review Urine Culture Comments Urine HCG, Qual Urine Opiates Screen Ur Oxycodone Screen Urine Methadone Screen Ur Propoxyphene Screen Ur Barbiturates Screen Ur Tricyclics Screen Ur Phencyclidine Scrn Ur Amphetamine Screen U Methamphetamines Scrn U Benzodiazepines Scrn Urine Cocaine Screen U Cannabinoids Screen - Rads (name of study) CT abdomen and pelvis Radiology: Prelim report reviewed, EMP read contemporaneously, See rad report PD MEDICAL DECISION MAKING - ED course Complexity details: reviewed results, re-evaluated patient, considered differential, d/w patient ED course: 24-year-old female with what appears to be cannabinoid induced hyperemesis. Symptoms resolved with haloperidol and diphenhydramine IV. Given IV fluids. Tolerating p.o. without difficulty. Recommend that she stop using marijuana. No other acute findings on CT scan or laboratory testing. Patient states warm showers often help her nausea as well. Will prescribe medication for home and have her follow-up with her doctor. Patient counseled regarding signs and symptoms for which I believe and urgent re-evaluation would be necessary. Patient with good understanding of and agreement to plan and is comfortable going home at this time This document was made in part using voice recognition software. While efforts a re made to proofread this document, sound alike and grammatical errors may occur. Departure - Departure Disposition: 01 Home, Self Care Clinical Impression: Cannabinoid hyperemesis syndrome Vomiting Qualifiers: Vomiting type: unspecified Vomiting Intractability: non-intractable Nausea presence: without nausea Qualified Code(s): R11.11 - Vomiting without nausea Condition: Good Instructions: ED Nausea Vomiting Follow-Up: JAD SYED ARNP [Primary Care Provider] - Within 1 week Prescriptions: Promethazine [Phenergan] 25 mg PO Q6H PRN #10 tab PRN Reason: Nausea / Vomiting Ondansetron Odt [Zofran] 4 mg TL Q6H PRN #10 tab PRN Reason: Nausea / Vomiting Comments: The cause of your symptoms is unclear, but is likely due to cannabinoid induced hyperemesis or cannabinoid hyperemesis syndrome. You need to refrain from any marijuana use for at least 3 months. Follow-up with your doctor for further care. Your CT scan and lab testing are normal. Discharge Date/Time: 07/01/20 17:59
[2020-07-01 15:57] LABS: MUDS CUTOFF CONCENTRATIONS CUTOFF CONC BELOW:
[2020-07-01] MEDS ORDERED: IOVERSOL 320 100 ML VIAL IVP ONE ×2 (16:07→18:19)
[2020-07-01 16:10] LABS: AMPHETAMINE SCREEN,URINE NEGATIVE (NEGATIVE); BENZODIAZEPINES SCREEN, URINE NEGATIVE (NEGATIVE); COCAINE SCREEN URINE NEGATIVE (NEGATIVE); METHADONE SCREEN, URINE NEGATIVE (NEGATIVE); METHAMPHETAMINES SCREEN, URINE NEGATIVE (NEGATIVE); OPIATE SCREEN, URINE NEGATIVE (NEGATIVE); OXYCODONE SCREEN, URINE NEGATIVE (NEGATIVE); PROPOXYPHENE SCREEN, URINE NEGATIVE (NEGATIVE); TRICYCLIC ANTIDEPRESSANT,URINE NEGATIVE (NEGATIVE)
--- NOTE | 2020-07-01 17:33 | CT Report ---
PROCEDURE: Abdomen/Pelvis W INDICATIONS: vomiting, abd pain x 2 months CONTRAST: IV CONTRAST: Optiray 320 ml: 100 PO CONTRAST: *NO PO CONTRAST TECHNIQUE: After the administration of IV contrast, 5 mm thick sections acquired from the diaphragms to the symp hysis. 5 mm thick coronal and sagittal reformats were acquired. For radiation dose reduction, the f ollowing was used: automated exposure control, adjustment of mA and/or kV according to patient size. COMPARISON: None. FINDINGS: Image quality: Excellent. ABDOMEN: Lung bases: Lung bases are clear. Heart size is normal. Solid organs: Liver and spleen are normal in size and enhancement. Gallbladder is normal Biliary s ystem is non dilated. Pancreas enhances normally. No adrenal nodules. Kidneys demonstrate normal s ize and enhancement, without hydronephrosis. Peritoneum and bowel: Bowel loops demonstrate normal wall thickness and caliber. No free fluid or a ir. Portions of a normal caliber appendix are visible in the right lower quadrant diagnosed strandin g inflammatory changes. Nodes and vessels: No retroperitoneal or mesenteric adenopathy by size criteria. Aorta and inferior vena cava are normal in size. Miscellaneous: No ventral hernias. PELVIS: Genitourinary: Bladder wall thickness is normal. The uterus is retroverted and there is a trace teagan unt of fluid adjacent to the fundus. Miscellaneous: No inguinal hernias or adenopathy. Bones: No suspicious bony lesions. No vertebral body compression fractures. IMPRESSION: 1. Normal appendix. 2. No evidence of small bowel obstruction. 3. Physiologic fluid around the fundus of retroverted uterus. Reviewed by: Anamika Hedrick MD on 07/01/2020 4:32 PM [facility] Approved by: Anamika Hedrick MD on 07/01/2020 4:32 PM [place] Station ID: [id number]
[2020-07-01 17:54] VITALS: BP 103/67
== END 2020-07-01 17:59 | disposition home or self-care (01) ==
LOC: ED 14:27
DX: R11.2 Nausea with vomiting, unspecified (principal); F12.188 Cannabis abuse with other cannabis-induced disorder; Z87.891 Personal history of nicotine dependence
CPT/HCPCS: 36415; 74177; 80053; 80306; 81001; 81025; 83690; 85025; 96374; 99284; J1200; Q9967; 81003; 87086

== ENCOUNTER 2021-11-18 21:52 | Emergency (ER) | payer MEDICAID ==
[2021-11-18] MEDS ORDERED: IBUPROFEN 800 MG TABLET PO STA (22:34)
[2021-11-18] MEDS ORDERED: cephALEXin 250 MG CAPSULE PO STA (22:34)
[2021-11-18] MEDS ORDERED: ONDANSETRON ODT 4 MG Prepack 2 TL PRN (22:34)
--- NOTE | 2021-11-18 22:37 | ED Physician Documentation ---
History of Present Illness - Stated complaint Stated Complaint: BREAST PX - Chief complaint Chief Complaint: General - History obtained from History obtained from: Patient - Additonal information Additional information: Patient is a 26-year-old female presenting for evaluation of left breast pain, body aches, chills since 630 this evening. She is 6 weeks from an uncomplicated vaginal delivery at full-term And is breast-feeding. She has had mastitis before and reports this feels similar. Her symptoms came on quite suddenly. She did try and breast-feed her daughter on the left breast but it was painful and thus she presented to the emergency department. She has been alternating breasts with feeds. She does feel that she is being emptied.Her daughter feeds frequently through the day but less so at night. She did take Tylenol prior to arrival. She does report associated nausea. She does have a history of migraine headaches And currently reports mild headache. She denies C hest pain, difficulty breathing, cough, vomiting, diarrhea, dysuria. Review of Systems Constitutional: reports: Chills. denies: Fever Nose: denies: Congestion Throat: denies: Sore throat Cardiac: denies: Chest pain / pressure, Palpitations Respiratory: denies: Dyspnea, Cough GI: reports: Nausea. denies: Abdominal Pain, Vomiting : denies: Dysuria Skin: reports: Rash (Mild erythema to left breast) Musculoskeletal: denies: Back pain Neurologic: reports: Headache. denies: Generalized weakness PD PAST MEDICAL HISTORY - Past Medical History Cardiovascular: None Respiratory: None Neuro: Headaches Endocrine/Autoimmune: None GI: Other SPECIALTY THERAPIST: None : None HEENT: Chronic sinusitis, Other Psych: Depression, Anxiety, Post traumatic stress disorder Musculoskeletal: None Derm: None - Past Surgical History Past Surgical History: Yes /SPECIALTY THERAPIST: section, Tubal ligation HEENT: Myringotomy (tubes), Tonsil/Adenoidectomy, Other - Present Medications Home Medications: Ambulatory Orders Medication Instructions Recorded Confirmed Multivitamin 1 each PO DAILY 07/01/20 07/01/20 cephALEXin [Keflex] 500 mg PO Q6H #28 cap 11/18/21 - Allergies Allergies/Adverse Reactions: Allergies Allergy/AdvReac Type Severity Reaction Status Date / Time codeine AdvReac Unknown Verified 07/01/20 14:32 - Social History Does the pt smoke?: No Smoking Status: Former smoker Does the pt drink ETOH?: No Does the pt have substance abuse?: Yes - Immunizations Immunizations are current?: Yes - POLST Patient has POLST: No PD ED PE NORMAL - General General: Alert and oriented X 3, No acute distress, Well developed/nourished - HEENT HEENT: Atraumatic, Moist mucous membranes, Pharynx benign - Neck Neck: Supple, no meningeal sign - Cardiac Cardiac: RRR, No murmur, Strong equal pulses - Respiratory Respiratory: No respiratory distress, Clear bilaterally - Abdomen Abdomen: Normal bowel sounds, Soft, Non tender, Non distended - Back Back: No CVA TTP - Derm Derm: Warm and dry - Neuro Neuro: Alert and oriented X 3, No motor deficit, Normal speech - Free text exam Free text exam: L Breast: Mild erythema And tenderness noted to 9:00 area with no palpable abscess or fluctuance, normal-appearing nipple with no abnormal discharge, no axillary lymphadenopathy Results - Vitals Vitals: Vital Signs - 24 hr 11/18/21 11/18/21 11/18/21 22:00 22:04 23:03 Temperature 37.8 C 36.8 C 36.8 C Heart Rate 125 H 70 70 Respiratory 18 16 16 Rate Blood Pressure 122/71 136/76 H 133/76 H O2 Saturation 97 99 97 Oxygen O2 Source Room air PD MEDICAL DECISION MAKING - ED course Complexity details: d/w patient ED course: Patient with body aches, chills, breast pain. Symptoms and exam seem consistent with mastitis. Patient was initially tachycardic but that quickly improved without any intervention. She appears hemodynamically stable and is overall nontoxic in appearance. We will start patient on Keflex. Patient is aware of recommendations to also aid in mastitis treatment including frequent emptying of breast.Patient is aware that if her symptoms or not improving in the next 24 to 48 hours she should return for reevaluation. No signs of abscess at this time. Departure - Departure Disposition: 01 Home, Self Care Clinical Impression: Acute mastitis of left breast Condition: Stable Instructions: ED Breast Infec Prescriptions: cephALEXin [Keflex] 500 mg PO Q6H #28 cap Comments: Your symptoms today suggest that You have mastitis. I am going to start you on an antibiotic called Keflex and send the prescription to [facility] in [place]. Please also use 600 to 800 mg of ibuprofen every 6 hours as Needed for pain as this will help with the inflammation. You can also use cold compresses and make sure that you are emptying your breast frequently (every 3 hours) Even if your baby is sleeping and does not want to feed. This may mean that you need to pump or hand express to empty the breast as this will also help clear the infection. If your symptoms or not improving over the next 48 to 72 hours please return to the emergency department for another evaluation. If you have any worsening symptoms Or other concerns you can also return at any time. You have also indicated concern regarding separation of muscles in your abdomen. This is known as diastases rectae. Please discuss this with your OB doctor. They may be able to refer you to physical therapy to help with this. Discharge Date/Time: 11/18/21 23:03
[2021-11-18 23:05] VITALS: BP 133/76
== END 2021-11-18 23:03 | disposition home or self-care (01) ==
LOC: ED 21:52
DX: N61.0 Mastitis without abscess (principal); Z87.891 Personal history of nicotine dependence
CPT/HCPCS: 99282; A9270

== ENCOUNTER 2023-02-21 07:46 | Outpatient (CLI) | payer MEDICAID ==
[2023-02-21 08:49] LABS: THYROID STIMULATING HORMONE 2.32 uIU/mL (0.34-5.60)
[2023-02-21 08:52] LABS: PROLACTIN 43.66 ng/mL
[2023-02-22 07:09] LABS: ESTRADIOL 27.8 pg/mL (.); PROGESTERONE 0.4 ng/mL (.)
[2023-02-22 22:07] LABS: FREE TESTOSTERONE(DIRECT) 9.4 pg/mL (0.0-4.2); SEX HORM BINDING GLOB SERUM 54.9 nmol/L (24.6-122.0)
== END 2023-02-21 07:47 | disposition home or self-care (01) ==
LOC: LAB 07:46
PROVIDERS: ATTEND Nurse Practitioner
DX: R51.9 Headache, unspecified (principal); N92.6 Irregular menstruation, unspecified
CPT/HCPCS: 36415; 82397; 82627; 82670; 83001; 83002; 83498; 84144; 84146; 84270; 84402; 84403; 84443

== ENCOUNTER 2023-04-28 11:41 | Outpatient (CLI) | payer MEDICAID ==
[2023-04-28 12:38] LABS: ESTIMATED AVERAGE GLUCOSE 85 mg/dL (70-100); HEMOGLOBIN A1c% 4.6 % (4.27-6.07)
[2023-04-28 14:33] LABS: THYROID STIMULATING HORMONE 1.13 uIU/mL (0.34-5.60)
== END 2023-04-28 11:42 | disposition home or self-care (01) ==
LOC: LAB 11:41
PROVIDERS: ATTEND Nurse Practitioner
DX: N92.6 Irregular menstruation, unspecified (principal)
CPT/HCPCS: 36415; 83036; 83498; 84443; 84702

== ENCOUNTER 2023-05-13 16:53 | Outpatient (CLI) | payer MEDICAID ==
--- NOTE | 2023-05-14 15:36 | Ultrasound Report ---
PROCEDURE: Pelvic w/Transvaginal INDICATIONS: IRREGULAR PERIODS TECHNIQUE: Real-time scanning was performed of the pelvic organs, with image documentation. Additional endovagi nal scanning was necessary due to incomplete visualization of the adnexal and endometrial structures by transabdominal scanning. COMPARISON: Pelvic ultrasound on April 20, 2018. FINDINGS: Uterus: Uterus is retroverted and normal in size at 7.6 x 3.9 x 6.1 cm. The myometrium is homogeneo us. The endometrium measures 7.6 mm in combined thickness. Cervix and vagina are within normal limi ts. Ovaries: The right ovary measures 3.6 x 1.7 x 3.5 cm, with a calculated ovarian volume of 11.3 cc. The left ovary measures 3 x 1.9 x 2.6 cm, with a calculated ovarian volume of 7.8 cc. There is a dom inant left-sided ovarian follicle measuring approximately 1.6 cm. The ovaries have a normal sonograph ic appearance. Less than 12 follicles can be seen in each ovary. No adnexal masses are seen. No cys tic lesions measuring greater than 3 cm. Other: No pathologic free abdominal or pelvic fluid. IMPRESSION: 1.Normal sonographic appearance of the uterus with endometrial thickness of 7.6 mm. 2.Normal sonographic appearance of the bilateral ovaries. Reviewed by: Solomon Alexis MD on 05/14/2023 3:35 PM PST Approved by: Solomon Alexis MD on 05/14/2023 3:35 PM PST Station ID: [id number]
== END 2023-05-13 16:54 | disposition home or self-care (01) ==
LOC: DI 16:53
PROVIDERS: ATTEND Nurse Practitioner
DX: N92.6 Irregular menstruation, unspecified (principal)